=== PATIENT | female | born 1960 | race Caucasian/White ===

== ENCOUNTER → 2017-01-02 | Outpatient (CLI) | payer OTHER ==
[~2017-01-02] MED LIST: IRON324 M1 PO; NORCO 325 MG-51 TAB PO; NOVOLOG 100U100 U/M1 IV; VITAMIN B COMPL1 T16 PO; ZESTRIL 5MG5 MG PO
== END ==
LOC: MC.RAD 09:40
DX: Z12.31 Encounter for screening mammogram for malignant neoplasm of breast (principal)

== ENCOUNTER → 2018-02-13 | Outpatient (CLI) | payer BC | LOC: MC.RAD 02-09 14:40 | DX: Z12.31 Encounter for screening mammogram for malignant neoplasm of breast (principal); Z85.3 Personal history of malignant neoplasm of breast ==

== ENCOUNTER → 2020-05-13 | Outpatient (CLI) | payer BC | LOC: MC.RAD 10:14 | DX: Z12.31 Encounter for screening mammogram for malignant neoplasm of breast (principal); Z98.82 Breast implant status ==

== ENCOUNTER → 2024-01-12 | Outpatient (CLI) | payer BC | LOC: COL.RAD 12:35 | DX: D25.9 Leiomyoma of uterus, unspecified (principal); C91.10 Chronic lymphocytic leukemia of B-cell type not having achieved remission ==